=== PATIENT | female | born 1950 | race Caucasian/White ===

== ENCOUNTER 2021-11-20 20:04 | Emergency (ER) | payer OTHER ==
[~2021-11-20] VITALS: Ht 154.9 cm; Wt 83.9 kg
[2021-11-20 20:24] VITALS: BP 158/83
[2021-11-20 21:30] LABS: BASOPHILS % (AUTO) 0.4 % (0.0-2.0); EOSINOPHILS # (AUTO) 0.3 K/uL (0-0.4); EOSINOPHILS % (AUTO) 2.6 % (0.0-4.0); HEMATOCRIT 41.1 % (36-48); HEMOGLOBIN 13.6 g/dL (12.0-16.0); LYMPHOCYTES # (AUTO) 2.5 K/uL (2.5-16.5); LYMPHOCYTES % (AUTO) 23.1 % (20.5-51.1); MEAN CORPUSCULAR HEMOGLOBIN 29 pg (27-31); MEAN CORPUSCULAR HGB CONC 33 g/dL (33-37); MEAN CORPUSCULAR VOLUME 86.6 fL (80-94); MONOCYTES % (AUTO) 9.2 % (1.7-9.3); NEUTROPHILS % (AUTO) 64.7 % (42.2-75.2); PLATELET COUNT (AUTO) 221 K/uL (140-450); RED BLOOD CELL COUNT(AUTO) 4.75 MIL/uL (4.20-5.40); RED CELL DISTRIBUTION WIDTH 14.4 % (11.6-13.7); WHITE BLOOD COUNT (AUTO) 10.9 K/uL (4.8-10.8)
--- NOTE | 2021-11-20 21:57 | NUR ---
PT AMBULATED TO BED 08.
[2021-11-20 22:24] LABS: ALBUMIN 3.2 g/dL (3.4-5.0); ANION GAP 13.9 (8-16); CARBON DIOXIDE 30.7 mmol/L (21-32); CREATININE 1.3 mg/dL (0.6-1.3); POTASSIUM 3.6 mmol/L (3.5-5.1); TOTAL BILIRUBIN 0.3 mg/dL (0.0-1.0)
[2021-11-20 22:27] VITALS: BP 184/64
--- NOTE | 2021-11-20 22:36 | NUR ---
71 Y/O F BIB SELF FOR 3 WEEKS OF FOOD POISONING W/ BOUTS OF N/D WITH VOMITING 1 TIME. PT C/O COLD/COUGH 2 WEEKS . PT STATES TODAY SHE FELT LIGHT HEADED, NAUSEATED AND FELT LIKE SHE WAS GOING TO PASS OUT SHE DESCREIBED IT AN "OUT OF BODY EXPERIENCE" PT DENIES FEVER. PT STATES SHE HAS BEEN TAKING HER INALER AND HAS BEEN USING HER NEBULIZER BUT NO RELIEF. PT HAD DIARRHEA TODAY. PT NOT COVID VACCINATED NOR CONTRACTED COVID. HX: HTN, COPD (8 YEARS) DM 2 , HYPOTHYROID, MEDS: SPIRIVA OMEPRAZOLE GLIPIZIDE LEVOTHYROXINE ATORVASTATIN,LOSARTAN,GABAPENTIN,TRAZADONE,ASPRIN, ALBUTEROL
[2021-11-20] MEDS ORDERED: ATOR20TA PO (23:23)
[2021-11-20] MEDS ORDERED: SYN.1 PO (23:25)
[2021-11-20] MEDS ORDERED: TRAZ150T36 PO (23:31)
[2021-11-20] MEDS ORDERED: OMEP-100 PO (23:31)
[2021-11-20] MEDS ORDERED: SPIMDI INH (23:41)
[2021-11-20] MEDS ORDERED: GABA100C PO (23:41)
[2021-11-20] MEDS ORDERED: GLIP5TER PO (23:41)
[2021-11-20] MEDS ORDERED: methylPREDNISolone SS 125 MG/2 ML VIAL IM ONE (23:45)
[2021-11-20] MEDS ORDERED: ALBUTEROL SULFATE/IPRATROPIU 3 ML SOL IH ONE (23:45)
[2021-11-21] MEDS ORDERED: TAM75 PO (02:20)
--- NOTE | 2021-11-21 02:43 | NUR ---
Patient discharged with v/s stable. Written and verbal after care instructions given and explained. Patient alert, oriented and verbalized understanding of instructions. Ambulatory with steady gait. All questions addressed prior to discharge. ID band removed. Patient advised to follow up with PMD. Rx of TAMIFLU given. Patient educated on indication of medication including possible reaction and side effects. Opportunity to ask questions provided and answered.
[2021-11-21] MEDS ORDERED: ALBU3SOL83 IH (04:11)
[2021-11-21] MEDS ORDERED: ALBU0.0912 IH (04:11)
== END 2021-11-21 02:43 | disposition home or self-care (01) ==
LOC: MED 20:04
DX: J10.1 Influenza due to other identified influenza virus with other respiratory manifestations (principal); Z20.822 Contact with and (suspected) exposure to COVID-19; J44.1 Chronic obstructive pulmonary disease with (acute) exacerbation; E11.9 Type 2 diabetes mellitus without complications; I10 Essential (primary) hypertension; Z79.899 Other long term (current) drug therapy; Z79.84 Long term (current) use of oral hypoglycemic drugs
CPT/HCPCS: 36415; 71045; 80053; 83690; 85025; 87426; 87804; 94640; 96372; 99283; J2930; Q0092

== ENCOUNTER 2021-12-10 12:45 | Inpatient (IN) | payer BC, SELFPAY ==
[~2021-12-10] VITALS: Ht 154.9 cm; Wt 81.6 kg
[~2021-12-10 12:45] MED LIST: ALBU0.0912 IH; ALBU3SOL83 IH; ATOR20TA PO; GABA100C PO; GLIP5TER PO; OMEP-100 PO; SPIMDI INH; SYN.1 PO; TAM75 PO; TRAZ150T36 PO
[2021-12-10 13:00] VITALS: BP 144/77
--- NOTE | 2021-12-10 13:10 | NUR ---
O2SAT 88 % AT THIS TIME. O2 2 LPM NASAL CANULA.
--- NOTE | 2021-12-10 13:13 | NUR ---
TENT 6
--- NOTE | 2021-12-10 13:16 | NUR ---
O2 SAT 98% AT THIS TIME.
--- NOTE | 2021-12-10 13:20 | NUR ---
BIB SELF C/O COUGH X 2 MONTHS AND C/O SOB, 8/10 KHAN, SORE THROAT X TODAY. P 102, O2SAT 88% AT THIS TIME. PATIENT USES O2 CANULA 2 LPM AT HOME NEEDED. PMH: COPD
--- NOTE | 2021-12-10 15:46 | NUR ---
ABRAHAM SWAB, PCR SWAB, AND FLU SWAB COLLECTED, SENT TO LAB WITH [employer].
[2021-12-10 15:56] LABS: BASOPHILS # (AUTO) 0.2 K/uL (0.00-0.22); BASOPHILS % (AUTO) 1.1 % (0.0-2.0); EOSINOPHILS # (AUTO) 0.1 K/uL (0-0.4); EOSINOPHILS % (AUTO) 0.4 % (0.0-4.0); HEMATOCRIT 38.6 % (36-48); HEMOGLOBIN 12.7 g/dL (12.0-16.0); LYMPHOCYTES # (AUTO) 1.2 K/uL (2.5-16.5); LYMPHOCYTES % (AUTO) 8.2 % (20.5-51.1); MEAN CORPUSCULAR HEMOGLOBIN 28 pg (27-31); MEAN CORPUSCULAR HGB CONC 33 g/dL (33-37); MEAN CORPUSCULAR VOLUME 86.1 fL (80-94); MONOCYTES # (AUTO) 1.4 K/uL (0.8-1.0); MONOCYTES % (AUTO) 9.9 % (1.7-9.3); NEUTROPHILS # (AUTO) 11.4 K/uL (1.8-7.7); NEUTROPHILS % (AUTO) 80.4 % (42.2-75.2); PLATELET COUNT (AUTO) 197 K/uL (140-450); RED BLOOD CELL COUNT(AUTO) 4.49 MIL/uL (4.20-5.40); RED CELL DISTRIBUTION WIDTH 14.1 % (11.6-13.7); WHITE BLOOD COUNT (AUTO) 14.2 K/uL (4.8-10.8)
[2021-12-10 16:07] LABS: ALBUMIN 2.6 g/dL (3.4-5.0); ANION GAP 13.6 (8-16); CARBON DIOXIDE 27.4 mmol/L (21-32); CREATININE 2.7 mg/dL (0.6-1.3); TOTAL BILIRUBIN 0.4 mg/dL (0.0-1.0)
[2021-12-10] MEDS ORDERED: AZITHROMYCIN 250 MG TAB PO ONE (18:05)
[2021-12-10] MEDS ORDERED: ALBUTEROL HFA MDI 90 MCG/ACTUATION 8 GM INH ONE (18:05)
[2021-12-10] MEDS ORDERED: NACL 0.9% 1,000 ML IV ONE (18:35)
[2021-12-10] MEDS ORDERED: predniSONE 20 MG TAB PO ONE (19:30)
[2021-12-10] MEDS ORDERED: methylPREDNISolone SS 125 MG/2 ML VIAL IVP ONE (19:50)
--- NOTE | 2021-12-10 21:16 | NUR ---
Meaghan bernabe in [facility] - 12/10/21 at 2116 by PRINCE PT MOVED TO BED 13
--- NOTE | 2021-12-10 21:20 | NUR ---
PT MOVED TO BED 13
--- NOTE | 2021-12-10 21:25 | NUR ---
PT PLACED ON BEDSIDE CHAIN OFFBEARER AND PLACED ON 4L VIA NC. PT CURRENTLY SATING AT 96%
[2021-12-10] MEDS ORDERED: SYN.1 PO (22:11)
[2021-12-10] MEDS ORDERED: LOSA100T1 PO (22:11)
[2021-12-10] MEDS ORDERED: TRAZ-343 PO (22:11)
[2021-12-10] MEDS ORDERED: GLIP5TER PO (22:11)
[2021-12-10] MEDS ORDERED: PRON INH (22:11)
[2021-12-10] MEDS ORDERED: ATOR20TA PO (22:11)
[2021-12-10] MEDS ORDERED: GABA100C PO (22:11)
[2021-12-10] MEDS ORDERED: OMEP20EC11 PO (22:11)
--- NOTE | 2021-12-10 23:27 | NUR ---
PATIENT SITTING UP IN BED WITH EYES OPEN, ON BEDSIDE SINGEING TORCH OPERATOR. PROVIDED PATIENT WITH A PILLOW FOR COMFORT, WILL CONTINUE TO MONITOR.
--- NOTE | 2021-12-10 23:32 | NUR ---
Pt report given to MAHOGANY MAHARAJ. Transfer of care at this time.
--- NOTE | 2021-12-11 01:41 | NUR ---
PT PROVIDED Adarsh WALLER.
[2021-12-11] MEDS: methylPREDNISolone SS 125 MG/2 ML VIAL IVP SCH ×2 (05:34→13:00)
[2021-12-11] MEDS ORDERED: ALBUTEROL HFA MDI 90 MCG/ACTUATION 8 GM INH PRN (08:45)
[2021-12-11 08:54] LABS: ANION GAP 13.4 (8-16); CARBON DIOXIDE 27.1 mmol/L (21-32); CREATININE 2.5 mg/dL (0.6-1.3); POTASSIUM 4.5 mmol/L (3.5-5.1)
[2021-12-11 08:58] LABS: BASOPHILS % (AUTO) 0.1 % (0.0-2.0); HEMATOCRIT 34.6 % (36-48); HEMOGLOBIN 11.1 g/dL (12.0-16.0); LYMPHOCYTES % (AUTO) 7.3 % (20.5-51.1); MEAN CORPUSCULAR HEMOGLOBIN 28 pg (27-31); MEAN CORPUSCULAR HGB CONC 32 g/dL (33-37); MEAN CORPUSCULAR VOLUME 87.2 fL (80-94); MONOCYTES # (AUTO) 0.5 K/uL (0.8-1.0); MONOCYTES % (AUTO) 3.7 % (1.7-9.3); NEUTROPHILS # (AUTO) 11.9 K/uL (1.8-7.7); NEUTROPHILS % (AUTO) 88.9 % (42.2-75.2); PLATELET COUNT (AUTO) 190 K/uL (140-450); RED BLOOD CELL COUNT(AUTO) 3.97 MIL/uL (4.20-5.40); RED CELL DISTRIBUTION WIDTH 14.4 % (11.6-13.7); WHITE BLOOD COUNT (AUTO) 13.4 K/uL (4.8-10.8)
[2021-12-11] MEDS ORDERED: FUROSEMIDE 40 MG/4 ML VIAL IVP SCH (09:00)
[2021-12-11] MEDS ORDERED: hydrALAZINE 25 MG TAB PO PRN (11:05)
[2021-12-11] MEDS ORDERED: ONDANSETRON 4 MG/2 ML VIAL IM/IVP PRN (11:35)
[2021-12-11] MEDS ORDERED: ALBUTEROL SULFATE/IPRATROPIU 3 ML SOL IH PRN (11:35)
[2021-12-11] MEDS ORDERED: MAG SULF 2000 MG/WATER PREMIX 50 ML IV PRN (11:35)
[2021-12-11] MEDS ORDERED: MORPHINE SULFATE 2 MG/ML SYR IVP PRN (11:35)
[2021-12-11] MEDS ORDERED: ACETAMINOPHEN 325 MG TAB PO PRN (11:35)
[2021-12-11] MEDS ORDERED: DEXTROSE 50% 50 ML SYR IVP PRN (11:35)
[2021-12-11] MEDS ORDERED: ZOLPIDEM 5 MG TAB PO PRN (11:35)
[2021-12-11] MEDS ORDERED: POTASSIUM CHLORIDE 10 MEQ TABER PO PRN (11:35)
[2021-12-11] MEDS ORDERED: ALBUTEROL 0.083% 2.5 MG/3 ML NEBU INH PRN (11:35)
[2021-12-11] MEDS ORDERED: DOCUSATE SODIUM 100 MG GELCAP PO PRN (11:35)
[2021-12-11] MEDS ORDERED: HYDROcodone/APAP 5/325 MG 1 TAB TAB PO PRN (11:35)
[2021-12-11] MEDS ORDERED: LORazepam 2 MG/ML VIAL IM/IVP PRN (11:35)
[2021-12-11 12:16] LABS: CHOL/HDL RATIO 10.9 (1-4.5); THYROID STIMULATING HORMONE 0.13 uIU/mL (0.34-3.74)
[2021-12-11 12:28] LABS: PROTHROMBIN TIME 10.1 secs (10.8-13.4)
[2021-12-11] MEDS: PIPERACILLIN/TAZOBACTAM 2.25 GM in DEXTROSE 5% 50 ML IV SCH (13:00)
[2021-12-11] MEDS ORDERED: PIPERACILLIN/TAZOBACTAM 2.25 GM VIAL IV ONE (13:26)
--- NOTE | 2021-12-11 13:30 | NUR ---
1300 meds still not given. pt still in angio at this time.
--- NOTE | 2021-12-11 13:30 | NUR ---
pt at ct angio at this time
[2021-12-11] MEDS: ALBUTEROL HFA MDI 90 MCG/ACTUATION 8 GM INH SCH ×3 (15:00→23:00)
--- NOTE | 2021-12-11 15:57 | NUR ---
PATIENT HAS BEEN SCREENED AND CATEGORIZED MODERATE NUTRITION RISK. PATIENT WILL BE SEEN WITHIN 3-5 DAYS OF ADMISSION. / JASON LEE [address]
--- NOTE | 2021-12-11 16:00 | NUR ---
PT BACK FROM CT ANGIO AT THIS TIME
[2021-12-11] MEDS ORDERED: NON-FORMULARY ITEM (Trazodone HCl 1 TAB) PO SCH (17:00)
--- NOTE | 2021-12-11 19:39 | NUR ---
GAVE REPORT TO MADELINE TALAMANTES. ALL CARES TRANSFERRED AT [facility] TIME.
[2021-12-11] MEDS: BLOOD GLUCOSE MONITORING 1 DEV DEV FS SCH (19:57)
[2021-12-11] MEDS: INSULIN LISPRO SLIDING SCALE 100 UNITS/ML VIAL SUBQ PRN (20:05)
[2021-12-12] MEDS ORDERED: HEPARIN PER PHARMACY MC PRN (01:35)
[2021-12-12] MEDS ORDERED: PIPERACILLIN/TAZOBACTAM 2.25 GM VIAL IV ONE ×3 (02:20→23:01)
[2021-12-12] MEDS ORDERED: methylPREDNISolone SS 125 MG/2 ML VIAL ONE (02:47)
[2021-12-12] MEDS: ALBUTEROL HFA MDI 90 MCG/ACTUATION 8 GM INH SCH ×2 (03:00→07:00)
[2021-12-12] MEDS: PIPERACILLIN/TAZOBACTAM 2.25 GM in DEXTROSE 5% 50 ML IV SCH ×4 (03:09→23:18)
[2021-12-12] MEDS: methylPREDNISolone SS 125 MG/2 ML VIAL IVP SCH (03:25)
[2021-12-12] MEDS: BLOOD GLUCOSE MONITORING 1 DEV DEV FS SCH ×5 (03:37→23:00)
[2021-12-12] MEDS: traZODone 50 MG TAB PO SCH ×2 (04:07→23:20)
[2021-12-12] MEDS: methylPREDNISolone SS 40 MG/ML VIAL IVP SCH ×3 (05:00→23:19)
[2021-12-12] MEDS: LEVOTHYROXINE 0.1 MG TAB PO SCH (06:30)
[2021-12-12 08:21] LABS: HEMATOCRIT 37.4 % (36-48); HEMOGLOBIN 11.9 g/dL (12.0-16.0); MEAN CORPUSCULAR HEMOGLOBIN 28 pg (27-31); MEAN CORPUSCULAR HGB CONC 32 g/dL (33-37); MEAN CORPUSCULAR VOLUME 86.6 fL (80-94); PLATELET COUNT (AUTO) 235 K/uL (140-450); RED BLOOD CELL COUNT(AUTO) 4.32 MIL/uL (4.20-5.40); RED CELL DISTRIBUTION WIDTH 14.8 % (11.6-13.7); WHITE BLOOD COUNT (AUTO) 14.9 K/uL (4.8-10.8)
--- NOTE | 2021-12-12 08:27 | NUR ---
DR ANDRADE AT BEDSIDE EVALUATING PT
[2021-12-12] MEDS: ATORVASTATIN 20 MG TAB PO SCH (09:00)
[2021-12-12] MEDS: PANTOPRAZOLE 40 MG TABEC PO SCH (09:00)
[2021-12-12] MEDS: LOSARTAN 50 MG TAB PO SCH (09:00)
[2021-12-12] MEDS ORDERED: ATORVASTATIN 20 MG TAB PO SCH (09:00)
[2021-12-12] MEDS: glipiZIDE ER 5 MG TABER PO SCH (09:00)
[2021-12-12] MEDS ORDERED: NON-FORMULARY ITEM (Omeprazole* (Prilosec*) 20 MG) PO SCH (09:00)
[2021-12-12] MEDS: GABAPENTIN 100 MG CAP PO SCH (09:00)
[2021-12-12 09:07] LABS: LACTATE DEHYDROGENASE 210 IU/L (119-226)
--- NOTE | 2021-12-12 09:07 | NUR ---
DR. ENGLISH AT BEDSIDE EVALUATING PATIENT.
--- NOTE | 2021-12-12 09:30 | NUR ---
RECEIVED PT IN [facility] AOX4. DENIES PAIN OR DISCOMFORT. 3LNC SATURATION 95%. SPEAKING IN FULL SENTENCES. NAD. SAFETY MAINTAINED.
[2021-12-12 09:48] LABS: PHOSPHORUS 3.5 mg/dL (2.5-4.9)
--- NOTE | 2021-12-12 10:08 | NUR ---
Patient moved via gurney to ER-5
[2021-12-12 10:26] LABS: ANION GAP 13.9 (8-16); CARBON DIOXIDE 27.1 mmol/L (21-32)
[2021-12-12] MEDS: INSULIN LISPRO SLIDING SCALE 100 UNITS/ML VIAL SUBQ PRN ×2 (12:00→16:30)
--- NOTE | 2021-12-12 12:30 | NUR ---
PT EATING LUNCH IN [facility], INSULIN COVERAGE GIVEN PER ORDER. NAD
[2021-12-12] MEDS: hydrALAZINE 25 MG TAB PO SCH ×2 (13:00→23:19)
[2021-12-12 14:42] LABS: BUFFY COAT SMEAR PREP N; LYMPHOCYTES % (MANUAL) 10 % (20-46); MONOCYTES % (MANUAL) 6 % (5-12)
[2021-12-12] MEDS ORDERED: hydrALAZINE 10 MG TAB ONE (14:56)
--- NOTE | 2021-12-12 16:00 | NUR ---
PT RESTING IN [place], BREATHING UNLABORED. NAD.
[2021-12-12] MEDS: hePARIN / DEXT 5% PREMIX 250 ML IV SCH (17:02)
--- NOTE | 2021-12-12 18:26 | NUR ---
HEPARIN INFUSING PER ORDER, TOLERATING WELL. NAD.
--- NOTE | 2021-12-12 20:33 | NUR ---
received pt from day shift MAHOGANY [place]. pt currently a/o x 4, gcs 15. able tomove all extremities freely. able to ambulate to bathroom. CV neg
--- NOTE | 2021-12-12 21:48 | NUR ---
report given to Ahmet VIDES. pt currently a/o x 4, gcs 15. able tomove all extremities freely. IV site patent.
[2021-12-12 22:10] VITALS: BP 161/104
--- NOTE | 2021-12-12 22:30 | NUR ---
RECEIVED PT FROM ER NURSE JOANIE SANTOS. PT AMBULATED TO BED. PT ALERT AND ORIENTED. ON 4 L NC. IV SITE ON LEFT HAND G20 AND RIGHT FA G 18. SKIN, WARM, DRY AND INTACT. MRSA SWAB DONE. PT ORIENTED TO CALL LIGHT AND ROOM. BED IN LOW, LOCKED POSITION. ALL PRECAUTIONS IN PLACE. WILL CONTINUE TO MONITOR.
--- NOTE | 2021-12-12 23:15 | NUR ---
DUE MEDICATIONS GIVEN. PT TOLERATED WELL. ALL PRECAUTIONS IN PLACE. CALL LIGHT WITHIN REACH. WILL CONTINUE TO MONITOR.
[2021-12-13] MEDS: INSULIN LISPRO SLIDING SCALE 100 UNITS/ML VIAL SUBQ PRN ×5 (00:03→21:39)
[2021-12-13] MEDS: hePARIN / DEXT 5% PREMIX 250 ML IV SCH ×2 (01:24→08:59)
--- NOTE | 2021-12-13 02:30 | NUR ---
PT ASLEEP. VISIBLE CHEST RISE AND FALL NOTED. CALL LIGHT WITHIN REACH. WILL CONTINUE TO MONITOR.
--- NOTE | 2021-12-13 04:00 | NUR ---
VS STABLE. NO S/SX OF DISTRESS NOTED. ALL PRECAUTIONS IN PLACE. WILL CONTINUE TO MONITOR.
[2021-12-13] MEDS: methylPREDNISolone SS 40 MG/ML VIAL IVP SCH (05:00)
[2021-12-13] MEDS: hydrALAZINE 25 MG TAB PO SCH ×3 (05:00→21:43)
[2021-12-13] MEDS: PIPERACILLIN/TAZOBACTAM 2.25 GM in DEXTROSE 5% 50 ML IV SCH ×3 (05:00→21:40)
[2021-12-13] MEDS ORDERED: PIPERACILLIN/TAZOBACTAM 2.25 GM VIAL IV ONE (05:54)
--- NOTE | 2021-12-13 06:30 | NUR ---
BLOOD SUGAR WAS 194.2 UNITS INSULIN GIVEN.PT IS STABLE. NO ACUTE EVENTS THROUGHOUT NIGHT. ALL NEEDS MET. WILL ENDORSE TO AM SHIFT NURSE.
[2021-12-13] MEDS: LEVOTHYROXINE 0.1 MG TAB PO SCH (06:40)
[2021-12-13] MEDS: BLOOD GLUCOSE MONITORING 1 DEV DEV FS SCH ×4 (06:40→21:43)
[2021-12-13 07:03] LABS: BASOPHILS % (AUTO) 0.3 % (0.0-2.0); HEMATOCRIT 37.3 % (36-48); HEMOGLOBIN 11.9 g/dL (12.0-16.0); LYMPHOCYTES # (AUTO) 1.8 K/uL (2.5-16.5); LYMPHOCYTES % (AUTO) 11.3 % (20.5-51.1); MEAN CORPUSCULAR HEMOGLOBIN 28 pg (27-31); MEAN CORPUSCULAR HGB CONC 32 g/dL (33-37); MEAN CORPUSCULAR VOLUME 86.7 fL (80-94); MONOCYTES # (AUTO) 1.1 K/uL (0.8-1.0); MONOCYTES % (AUTO) 6.7 % (1.7-9.3); NEUTROPHILS # (AUTO) 12.9 K/uL (1.8-7.7); NEUTROPHILS % (AUTO) 81.7 % (42.2-75.2); PLATELET COUNT (AUTO) 252 K/uL (140-450); WHITE BLOOD COUNT (AUTO) 15.8 K/uL (4.8-10.8)
[2021-12-13 07:25] LABS: ANION GAP 14.7 (8-16); CARBON DIOXIDE 27.9 mmol/L (21-32); CREATININE 1.5 mg/dL (0.6-1.3); POTASSIUM 4.6 mmol/L (3.5-5.1)
--- NOTE | 2021-12-13 07:25 | NUR ---
ENDORSED TO AM SHIFT NURSE FOR CONTINUITY OF CARE. PT IS STABLE.
[2021-12-13 08:00] VITALS: BP 160/56
[2021-12-13 08:12] LABS: MAGNESIUM 1.8 mg/dL (1.8-2.4); PHOSPHORUS 3.6 mg/dL (2.5-4.9)
[2021-12-13] MEDS: PANTOPRAZOLE 40 MG TABEC PO SCH (09:27)
[2021-12-13] MEDS: GABAPENTIN 100 MG CAP PO SCH (09:27)
[2021-12-13] MEDS: glipiZIDE ER 5 MG TABER PO SCH (09:27)
[2021-12-13] MEDS: ATORVASTATIN 20 MG TAB PO SCH (09:27)
[2021-12-13] MEDS: LOSARTAN 50 MG TAB PO SCH (09:27)
[2021-12-13] MEDS ORDERED: LOVENOX 1MG/KG Q12H SUBQ SCH (09:45)
[2021-12-13] MEDS: predniSONE 20 MG TAB PO SCH (10:32)
[2021-12-13] MEDS: ALBUTEROL HFA MDI 90 MCG/ACTUATION 8 GM INH SCH ×4 (10:45→23:43)
[2021-12-13 12:00] VITALS: BP 151/63
[2021-12-13] MEDS ORDERED: ENOXAPARIN 80 MG/0.8 ML SYR SUBQ SCH (12:00)
[2021-12-13] MEDS ORDERED: lisinopriL 20 MG TAB PO SCH (12:30)
[2021-12-13 16:00] VITALS: BP 152/56
[2021-12-13 20:00] VITALS: BP 154/61
[2021-12-13] MEDS: traZODone 50 MG TAB PO SCH (21:42)
[2021-12-13] MEDS: ENOXAPARIN 80 MG/0.8 ML SYR SUBQ SCH (21:42)
[2021-12-14] VITALS: BP 161/53
[2021-12-14] MEDS: ALBUTEROL HFA MDI 90 MCG/ACTUATION 8 GM INH SCH ×4 (03:00→15:25)
[2021-12-14 04:00] VITALS: BP 152/58
[2021-12-14] MEDS: PIPERACILLIN/TAZOBACTAM 2.25 GM in DEXTROSE 5% 50 ML IV SCH ×2 (05:18→12:50)
[2021-12-14] MEDS: LEVOTHYROXINE 0.1 MG TAB PO SCH (05:18)
[2021-12-14] MEDS: hydrALAZINE 25 MG TAB PO SCH ×2 (05:18→13:37)
[2021-12-14] MEDS: BLOOD GLUCOSE MONITORING 1 DEV DEV FS SCH ×2 (06:17→11:30)
[2021-12-14 07:18] LABS: MAGNESIUM 1.7 mg/dL (1.8-2.4); PHOSPHORUS 2.9 mg/dL (2.5-4.9)
[2021-12-14 07:59] LABS: BASOPHILS % (AUTO) 0.3 % (0.0-2.0); EOSINOPHILS % (AUTO) 0.1 % (0.0-4.0); HEMATOCRIT 38.4 % (36-48); HEMOGLOBIN 12.2 g/dL (12.0-16.0); LYMPHOCYTES # (AUTO) 3.5 K/uL (2.5-16.5); LYMPHOCYTES % (AUTO) 20.3 % (20.5-51.1); MEAN CORPUSCULAR HEMOGLOBIN 28 pg (27-31); MEAN CORPUSCULAR HGB CONC 32 g/dL (33-37); MEAN CORPUSCULAR VOLUME 87.2 fL (80-94); MONOCYTES # (AUTO) 2.9 K/uL (0.8-1.0); MONOCYTES % (AUTO) 16.3 % (1.7-9.3); PLATELET COUNT (AUTO) 256 K/uL (140-450); RED CELL DISTRIBUTION WIDTH 15.1 % (11.6-13.7); WHITE BLOOD COUNT (AUTO) 17.5 K/uL (4.8-10.8)
[2021-12-14 08:00] VITALS: BP 169/63
--- NOTE | 2021-12-14 08:00 | NUR ---
RECEIVED REPORT FROM CONCRETE TECHNICIAN FOR CONTINUITY OF CARE. PATIENT ALERT AWAKE ORIENTED X4, NOT IN ANY DISTRESS NOTED. DENIES PAIN AT THIS TIME. WITH RIGHT FORE ARM GAUGE 18 DRY AND INTACT. ON MONITOR SHOWS SR. ON 4L NASAL CANNULA SATURATING 97%. DROPLET PRECAUTION OBSERVED. CALL LIGHT WITHIN REACH. WILL CONTINUE TO MONITOR.
[2021-12-14 08:07] LABS: ANION GAP 9.7 (8-16); CARBON DIOXIDE 33.3 mmol/L (21-32); CREATININE 1.4 mg/dL (0.6-1.3)
[2021-12-14] MEDS: predniSONE 20 MG TAB PO SCH (08:43)
[2021-12-14] MEDS: LOSARTAN 50 MG TAB PO SCH (08:43)
[2021-12-14] MEDS: glipiZIDE ER 5 MG TABER PO SCH (08:44)
[2021-12-14] MEDS: PANTOPRAZOLE 40 MG TABEC PO SCH (08:44)
[2021-12-14] MEDS: ATORVASTATIN 20 MG TAB PO SCH (08:44)
[2021-12-14] MEDS: GABAPENTIN 100 MG CAP PO SCH (08:45)
[2021-12-14] MEDS: ENOXAPARIN 80 MG/0.8 ML SYR SUBQ SCH (08:58)
[2021-12-14] MEDS ORDERED: lisinopriL 20 MG TAB PO SCH (09:00)
[2021-12-14] MEDS ORDERED: METO25TA PO (11:19)
[2021-12-14] MEDS ORDERED: PRED20TA6 PO (11:24)
[2021-12-14] MEDS ORDERED: PRED10TA6 PO (11:24)
[2021-12-14] MEDS ORDERED: AMOX-999 PO (11:25)
[2021-12-14] MEDS ORDERED: RIVA20TA PO (11:25)
[2021-12-14 12:00] VITALS: BP 148/65
[2021-12-14] MEDS: INSULIN LISPRO SLIDING SCALE 100 UNITS/ML VIAL SUBQ PRN (12:21)
--- NOTE | 2021-12-14 13:00 | NUR ---
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 DISCHARGE INSTRUCTION GIVEN AND SIGNED PAPERS. WILL CONTINUE TO MONITOR.
[2021-12-14] MEDS ORDERED: FUROSEMIDE 40 MG/4 ML VIAL IVP SCH (14:00)
--- NOTE | 2021-12-14 16:49 | NUR ---
PATIENT DISCHARGE TO HOME VIA WHEELCHAIR WITH DISCHARGE INSTRUCTION GIVEN AND VERBALIZED UNDERSTANDING. IN STABLE CONDITION.
[2021-12-14] MEDS ORDERED: hydrALAZINE 25 MG TAB PO SCH (21:00)
[2021-12-17 06:07] LABS: LD2 FRACTION 27 % (25-40); LD3 FRACTION 19 % (17-27); LD4 FRACTION 13 % (5-13)
== END 2021-12-14 16:50 | disposition home or self-care (01) | DRG 871 ==
LOC: MED 12:45 → MTU 20:05
DX: A41.9 Sepsis, unspecified organism (principal); I26.99 Other pulmonary embolism without acute cor pulmonale; I50.43 Acute on chronic combined systolic (congestive) and diastolic (congestive) heart failure; J96.21 Acute and chronic respiratory failure with hypoxia; N17.0 Acute kidney failure with tubular necrosis; J44.1 Chronic obstructive pulmonary disease with (acute) exacerbation; D68.59 Other primary thrombophilia; I13.0 Hypertensive heart and chronic kidney disease with heart failure and stage 1 through stage 4 chronic kidney disease, or unspecified chronic kidney disease; E11.40 Type 2 diabetes mellitus with diabetic neuropathy, unspecified; E03.9 Hypothyroidism, unspecified; Z20.822 Contact with and (suspected) exposure to COVID-19; K21.9 Gastro-esophageal reflux disease without esophagitis; G47.00 Insomnia, unspecified; E66.9 Obesity, unspecified; E78.5 Hyperlipidemia, unspecified; N18.9 Chronic kidney disease, unspecified; Z79.899 Other long term (current) drug therapy; Z87.891 Personal history of nicotine dependence; Z68.34 Body mass index [BMI] 34.0-34.9, adult; Z79.890 Hormone replacement therapy
CPT/HCPCS: 36415; 71045; 78582; 80048; 80053; 82150; 82948; 83036; 83605; 83625; 83690; 83735; 83880; 84100; 84134; 84443; 84484; 85025; 85379; 85610; 85730; 86140; 87040; 87081; 93005; 93970; 94664; 96361; 96374; 99291; J1644; J1650; J1815; J1940; J2543; J2920; J2930; J3535; J7060; J7512; Q0092; U0003